=== PATIENT | male | born 1965 ===

== ENCOUNTER 2020-11-23 11:49 | Inpatient (IN) ==
[~2020-11-23 11:49] MED LIST: Buffered Lidocaine 1% SYRIN 1 ml INTRADERM ONE; Dexmedetomidine 200 mcg/2 ml 2 ml VIAL (200 mcg) ONE; DiMENhydriNATE IV 50 mg/ml 1 ml VIAL IV PUSH PRN; Lactated Ringers 1000 ml BAG 1,000 ML IV SCH; Lidocaine 2% PF 5 ML VIAL ONE; Midazolam 2 mg/2 ml VIAL 1 mg/ml 2 ml VIAL (2 mg) ONE; Naloxone 0.4 mg VIAL 0.4 mg/ml 1 ml VIAL IV PRN; Ondansetron 4 mg VIAL 2 MG/ML 2 ml VIAL IV PRN; Propofol 10 MG/ML 20 ML BTL ONE; oxyCODONE/Acetamin 5/325 mg TAB PO PRN
[2020-11-23] MEDS ORDERED: ceFAZolin 2 GM PREMIX 2 GM/50 ML BAG ONE (12:28)
[2020-11-23] MEDS ORDERED: Ketamine HCL 50 mg/ml 10 ml VIAL (500 MG) ONE (13:00)
[2020-11-23] MEDS ORDERED: Ropivacaine 5 MG/ML 20 ML VIAL 0.5% (100 MG) ONE (13:16)
[2020-11-23] MEDS ORDERED: Midazolam 5 mg/5 ml VIAL 1 mg/ml 5 ml VIAL (5 mg) ONE (13:46)
[2020-11-23] MEDS ORDERED: Ondansetron 4 mg VIAL 2 MG/ML 2 ml VIAL ONE (14:00)
[2020-11-23] MEDS ORDERED: fentaNYL 100 mcg/2 ml 50 MCG/ML VIAL ONE ×2 (14:05→17:17)
[2020-11-23] MEDS ORDERED: Glycopyrrolate IV 0.2 MG/ML 1 ML VIAL ONE (14:38)
[2020-11-23] MEDS ORDERED: Propofol 10 MG/ML 20 ML BTL ONE ×4 (14:40→16:28)
[2020-11-23] MEDS ORDERED: EPHEDrine (Pressors) 50 MG/ML VIAL ONE (15:24)
[2020-11-23] MEDS ORDERED: diPHENhydraMINE IV 50 MG/ML 1 ml VIAL (BENADRYL) IV PRN (17:09)
[2020-11-23] MEDS ORDERED: diPHENhydraMINE 25 mg TAB PO PRN (17:09)
[2020-11-23] MEDS ORDERED: Lactulose 30 ml UDC PO PRN (17:09)
[2020-11-23] MEDS ORDERED: Morphine 2 MG/ML SYRINGE IV PRN (17:09)
[2020-11-23] MEDS ORDERED: Magnesium Hydroxide LIQ 30 ML UDC PO PRN (17:09)
[2020-11-23] MEDS ORDERED: Ondansetron ODT 4 mg TAB 4 MG TAB PO PRN (17:09)
[2020-11-23] MEDS ORDERED: Ondansetron 4 mg VIAL 2 MG/ML 2 ml VIAL IV PRN (17:09)
[2020-11-23] MEDS: fentaNYL 100 mcg/2 ml 50 MCG/ML VIAL IV PRN ×2 (17:18→17:23)
[2020-11-23] MEDS: Ciprofloxacin 0.3% OPTH.SOL BTL BOTH EYES SCH ×2 (18:04→22:50)
[2020-11-23] MEDS: Lactated Ringers 1000 ml BAG 1,000 ML IV SCH (18:47)
[2020-11-23] MEDS: Magnesium Hydroxide LIQ 30 ML UDC PO SCH (20:36)
[2020-11-23] MEDS: Morphine ER 15 mg TAB ** extended release PO SCH (21:58)
[2020-11-23] MEDS: ceFAZolin 1 GM ADVAN 1 GM in NS 0.9% 50 ML 50 ML IVPB SCH (21:59)
[2020-11-24] MEDS ORDERED: Lidocaine PATCH 5% PATCH TRANSDERM ONE (01:00)
[2020-11-24] MEDS: Ciprofloxacin 0.3% OPTH.SOL BTL BOTH EYES SCH ×3 (02:07→11:18)
[2020-11-24 05:33] LABS: Hematocrit 30 % (42-52); Hemoglobin 9.4 g/dL (14.0-18.0); Mean Platelet Volume 8.2 fL (7.4-10.4); Platelet Count 202 10^3/uL (150-450)
[2020-11-24 05:52] LABS: BUN/Creatinine Ratio 15.5 (8-20); Calcium 8.1 mg/dL (8.6-10.3); EGFR African American 96.9 (>60); EGFR Non-African American 80.1 (>60); Potassium 3.6 mmol/L (3.5-5.0)
[2020-11-24] MEDS: Lactated Ringers 1000 ml BAG 1,000 ML IV SCH (05:54)
[2020-11-24] MEDS: ceFAZolin 1 GM ADVAN 1 GM in NS 0.9% 50 ML 50 ML IVPB SCH ×2 (05:55→14:03)
[2020-11-24] MEDS: Magnesium Hydroxide LIQ 30 ML UDC PO SCH (08:23)
[2020-11-24] MEDS: Morphine ER 15 mg TAB ** extended release PO SCH (08:24)
[2020-11-24] MEDS ORDERED: Vitamin THERAPEUTIC TAB PO SCH (09:00)
[2020-11-24 11:26] VITALS: BP 120/71
[2020-11-24] MEDS ORDERED: Lidocaine Patch REMOVE PATCH PATCH OFF SCH (21:00)
== END 2020-11-24 15:37 | disposition home or self-care (01) | DRG 301 ==
LOC: AA 11:49 → SSU 18:42
PROVIDERS: ADMIT Orthopaedic Surgery Adult Reconstructive Orthopaedic Surgery; ATTEND Orthopaedic Surgery Adult Reconstructive Orthopaedic Surgery